=== PATIENT | male | born 1960 | race Caucasian/White ===

== ENCOUNTER → 2018-01-27 | Outpatient (CLI) | payer BC ==
[2018-01-27 10:46] LABS: ABSOLUTE BASOPHILS # (AUTO) 0.1 10^3/uL (0.0-0.2); ABSOLUTE EOSINOPHILS # (AUTO) 0.3 10^3/uL (0.0-0.6); ABSOLUTE LYMPHOCYTES (AUTO) 2.8 10^3/uL (0.5-4.7); ABSOLUTE MONOCYTES (AUTO) 0.7 10^3/uL (0.1-1.4); ABSOLUTE NEUT (AUTO) 3.9 10^3/uL (1.7-8.2); BASOPHILS % (AUTO) 1.5 % (0-2); EOSINOPHILS % (AUTO) 4.3 % (0-6); HEMATOCRIT 38.6 % (37.9-51.0); HEMOGLOBIN 13.1 g/dL (13.5-17.0); LYMPHOCYTES % (AUTO) 36.1 % (13-45); MEAN CORPUSCULAR HGB CONC 34.1 g/dL (32.0-36.0); MEAN CORPUSCULAR VOLUME 94 fl (80-97); MONOCYTES % (AUTO) 8.8 % (3-13); PLATELET COUNT 278 10^3/uL (150-450); RED BLOOD COUNT 4.11 10^6/uL (4.35-5.55); RED CELL DISTRIBUTION WIDTH 12.6 % (11.5-14.0); SEGMENTED NEUTROPHILS % (AUTO) 49.3 % (42-78); TOTAL CELLS COUNTED % (AUTO) 100 %; WHITE BLOOD COUNT 7.8 10^3/uL (4.0-10.5)
[2018-01-27 11:03] LABS: ALANINE AMINOTRANSFERASE 54 U/L (21-72); ALBUMIN 4.5 g/dL (3.5-5.0); ALKALINE PHOSPHATASE 41 U/L (38-126); ANION GAP 9 (5-19); ASPARTATE AMINO TRANSFERASE 37 U/L (17-59); BILIRUBIN,DIRECT 0.4 mg/dL (0.0-0.4); BILIRUBIN,TOTAL 0.4 mg/dL (0.2-1.3); BLOOD UREA NITROGEN 15 mg/dL (7-20); CALCIUM 9.8 mg/dL (8.4-10.2); CARBON DIOXIDE 28 mmol/L (22-30); CHLORIDE 103 mmol/L (98-107); CHOLESTEROL 235.36 mg/dL (0-200); GLUCOSE 108 mg/dL (75-110); POTASSIUM 4.8 mmol/L (3.6-5.0); SODIUM 140.4 mmol/L (137-145); TOTAL PROTEIN 7.7 g/dL (6.3-8.2); TRIGLYCERIDES 242 mg/dL (<150); URIC ACID 7.1 mg/dL (3.5-8.5)
[2018-01-27 11:18] LABS: DIRECT LDL 187 mg/dL (<100)
[2018-01-27 11:29] LABS: VLDL CHOLESTEROL 48.4 mg/dL (10-31)
[2018-01-30 03:37] LABS: THYROXINE (T4) 7.1 ug/dL (4.5-12.0)
== END ==
LOC: LAB 09:49
PROVIDERS: ATTEND Physician Assistant Medical
DX: J30.2 Other seasonal allergic rhinitis (principal); E78.5 Hyperlipidemia, unspecified; E11.9 Type 2 diabetes mellitus without complications; E55.9 Vitamin D deficiency, unspecified; R53.83 Other fatigue
CPT/HCPCS: 36415; 80053; 80061; 83036; 84402; 84403; 84436; 84443; 84479; 84481; 84550; 85025

== ENCOUNTER → 2018-08-25 | Outpatient (CLI) | payer BC ==
[2018-08-25 11:08] LABS: ALANINE AMINOTRANSFERASE 42 U/L (21-72); ALBUMIN 4.7 g/dL (3.5-5.0); ALKALINE PHOSPHATASE 42 U/L (38-126); ANION GAP 9 (5-19); ASPARTATE AMINO TRANSFERASE 30 U/L (17-59); BILIRUBIN,DIRECT 0.3 mg/dL (0.0-0.4); BILIRUBIN,TOTAL 0.4 mg/dL (0.2-1.3); BLOOD UREA NITROGEN 13 mg/dL (7-20); CALCIUM 9.7 mg/dL (8.4-10.2); CARBON DIOXIDE 33 mmol/L (22-30); CHLORIDE 100 mmol/L (98-107); CHOLESTEROL 235.63 mg/dL (0-200); GLUCOSE 126 mg/dL (75-110); POTASSIUM 5.3 mmol/L (3.6-5.0); SODIUM 141.5 mmol/L (137-145); TOTAL PROTEIN 8.4 g/dL (6.3-8.2); TRIGLYCERIDES 341 mg/dL (<150)
[2018-08-25 11:19] LABS: DIRECT LDL 163 mg/dL (<100)
[2018-08-25 11:23] LABS: FREE T4 (FREE THYROXINE) 0.93 ng/dL (0.78-2.19); VLDL CHOLESTEROL 68.2 mg/dL (10-31)
[2018-08-25 11:37] LABS: THYROID STIMULATING HORMONE 4.26 uIU/mL (0.47-4.68)
[2018-08-25 12:19] LABS: T3 UPTAKE 30.5 %; THYROXINE T4 8.19 ug/dL (5.53-11.0)
[2018-08-27 04:36] LABS: CREATININE URINE 77.9 mg/dL (Not Estab.); MICROALBUMIN URINE 25.3 ug/mL (Not Estab.)
== END ==
LOC: LAB 10:17
PROVIDERS: ATTEND Nurse Practitioner Adult Health
DX: E11.9 Type 2 diabetes mellitus without complications (principal); I10 Essential (primary) hypertension; R53.83 Other fatigue; E03.9 Hypothyroidism, unspecified; E78.5 Hyperlipidemia, unspecified
CPT/HCPCS: 36415; 80053; 80061; 82043; 82570; 83036; 84436; 84439; 84443; 84479

== ENCOUNTER → 2019-05-31 | Outpatient (CLI) | payer BC ==
--- NOTE | 2019-05-31 13:07 | RADIOLOGY REPORT (SQ) ---
EXAM DESCRIPTION: T SPINE AP/LAT COMPLETED DATE/TIME: 05/31/2019 10:14 am REASON FOR STUDY: M54.6 PAIN IN THORACIC SPINE, M54.5 LOW BACK PAIN M54.6 PAIN IN THORACIC SPINE M5 4.5 LOW BACK PAIN COMPARISON: Two-view chest film 11/27/2009 NUMBER OF VIEWS: Two views. TECHNIQUE: AP and lateral radiographic images acquired of the thoracic spine. LIMITATIONS: None. FINDINGS: MINERALIZATION: Normal. ALIGNMENT: Normal. No scoliosis. VERTEBRAE: No fracture or bone lesion. Maintained height, normal segmentation. DISCS: Disc space loss of height at T5-6 and T6-7 with vertebral body endplate sclerosis from degener ative disc change. HARDWARE: Lower cervical fusion hardware, clips and stent along the left carotid MEDIASTINUM AND SOFT TISSUES: Normal heart size and aortic contour. No soft tissue abnormality. VISUALIZED LUNG SCOTT: Clear. OTHER: No other significant finding. IMPRESSION: Degenerative disc space loss of height at T5-6 and T6-7 No acute fracture TECHNICAL DOCUMENTATION: JOB ID: [id number] [employer]- All Rights Reserved Reading location - IP/workstation name: [email or web address]
--- NOTE | 2019-05-31 13:08 | RADIOLOGY REPORT (SQ) ---
EXAM DESCRIPTION: L SPINE WHOLE COMPLETED DATE/TIME: 05/31/2019 10:14 am REASON FOR STUDY: M54.6 PAIN IN THORACIC SPINE, M54.5 LOW BACK PAIN M54.6 PAIN IN THORACIC SPINE M5 4.5 LOW BACK PAIN COMPARISON: Thoracic spine two views same date NUMBER OF VIEWS: Five views including obliques. TECHNIQUE: AP, lateral, oblique, and sacral radiographic images acquired of the lumbar spine. LIMITATIONS: None. FINDINGS: MINERALIZATION: Normal. SEGMENTATION: Normal. No transitional anatomy. ALIGNMENT: Normal. VERTEBRAE: Maintained height. No fracture or worrisome bone lesion. DISCS: Mild disc space loss of height at L4-5 POSTERIOR ELEMENTS: Pedicles and facets are intact. No pars defect or posterior arch defects. Mild bilateral facet arthropathy at L4-5 and L5-S1 HARDWARE: None in the spine. PARASPINAL SOFT TISSUES: Normal. PELVIS: Intact as visualized. No fractures or worrisome bone lesions. SI joints intact. OTHER: No other significant finding. IMPRESSION: NORMAL 5 VIEW LUMBAR SPINE. TECHNICAL DOCUMENTATION: JOB ID: [id number] [employer]- All Rights Reserved Reading location - IP/workstation name: [email or web address]
== END ==
LOC: RAD 09:35
PROVIDERS: ATTEND Pain Medicine Pain Medicine
DX: M54.5 Low back pain (principal); M51.34 Other intervertebral disc degeneration, thoracic region
CPT/HCPCS: 72070; 72110

== ENCOUNTER → 2019-07-25 | Outpatient (CLI) | payer BC ==
--- NOTE | 2019-07-25 10:22 | RADIOLOGY REPORT (SQ) ---
EXAM DESCRIPTION: MRI CERVICAL SPINE WITHOUT COMPLETED DATE/TIME: 07/25/2019 9:08 am REASON FOR STUDY: CERVICALGIA (M54.2) M54.2 CERVICALGIA COMPARISON: None. TECHNIQUE: Sagittal and Axial imaging includes T1, T2, STIR and gradient echo sequences. LIMITATIONS: None. FINDINGS: ALIGNMENT: Normal. VERTEBRAE: Intact. BONE MARROW: Normal. No marrow replacement or reactive changes. DISCS: Diffuse decreased T2 weighted intervertebral disc signal HARDWARE: Fusion from C5 through C7 CORD AND BASE OF BRAIN: Normal in size and signal intensity. SOFT TISSUES: No soft tissue masses. C1-C2: No significant spinal stenosis. C2-C3: No significant spinal stenosis or exit foraminal stenosis. C3-C4: Minimal posterior disc bulging and bony spurring is present, causing very mild left foraminal narrowing. No right foraminal stenosis or central canal narrowing. C4-C5: Minimal posterior disc bulge and bony spurring is present without central canal narrowing. Mo derate right, mild left foraminal narrowing from facet and uncovertebral hypertrophy C5-C6: Post fusion. Minimal posterior disc bulge and bony spurring is present without central canal narrowing. Moderate bilateral foraminal narrowing from facet and uncovertebral hypertrophy C6-C7: Post fusion. Mild diffuse posterior disc bulge with tiny central protrusion partially effaces the ventral thecal sac and abuts the ventral cord with minimal ventral cord flattening but no abnorm al intrinsic cord signal. Mild bilateral foraminal narrowing is present. C7-T1: No central or right foraminal narrowing. Moderate left foraminal narrowing from asymmetric le ft-sided facet and uncovertebral hypertrophy. OTHER: No other significant finding. IMPRESSION: Mild diffuse degenerative changes as above. Post fusion at C5-6 and C6-7 TECHNICAL DOCUMENTATION: JOB ID: [id number]- All Rights Reserved Reading location - IP/workstation name: [email or web address]
== END ==
LOC: RAD 07:26
PROVIDERS: ATTEND Nurse Practitioner Family
DX: M54.2 Cervicalgia (principal)
CPT/HCPCS: 72141

== ENCOUNTER 2020-07-21 05:26 | Observation (INO) | payer BC ==
[2020-07-21] MEDS ORDERED: ASPIRIN 81 MG TABLET, CHEWABLE PO ONE (05:56)
[2020-07-21] MEDS ORDERED: PENICILLIN V POTASSIUM 500 MG TABLET PO ONE (06:36)
--- NOTE | 2020-07-21 06:39 | ER Document Report ---
ED General - General Chief Complaint: Toothache Stated Complaint: GENERAL WEAKNESS Time Seen by Provider: 07/21/20 06:14 Primary Care Provider: SARA HENDERSON PA-C [Primary Care Provider] - Follow up as needed Notes: HPI: 59-year-old male with past medical history as recorded who states this morning he states he started to feel "sweaty and lightheaded". No headache, chest pain, palpitations, vomiting, or fevers. He denies any weakness or numbness. Patient denies any difficulty breathing, tongue swelling, sore t hroat, or cough. He denies any gait instability. Patient has a history of diabetes, high blood pressure, and high cholesterol. He denies any cardiac history in the past. He does take metformin. Patient states he also had some tooth discomfort to the left lower tooth and did take a Vicodin for that today. He did not take any aspirin. Currently denies any symptoms. ROS: See HPI All other review of systems reviewed and otherwise negative Reviewed vital signs and nursing note as charted by RN. PHYSICAL EXAM: CONSTITUTIONAL: Alert and oriented and responds appropriately to questions. Well-appearing; well-nourished HEAD: Normocephalic; atraumatic EYES: PERRL; Conjunctivae clear, sclerae non-icteric ENT: No obvious facial swelling. Very poor dentition. No obvious intraoral abscesses present. No posterior pharyngeal erythema with a nonswollen midline uvula NECK: Supple without meningismus; non-tender; no cervical lymphadenopathy, no masses CARD: Regular rate and rhythm; no murmurs; symmetric distal pulses RESP: Normal chest excursion without splinting or tachypnea; breath sounds clear and equal bilaterally ABD/GI: Normal bowel sounds; non-distended; soft, non-tender; no palpable organomegaly or masses BACK: The back appears normal and is non-tender to palpation EXT: Normal ROM in all joints; non-tender to palpation; no edema SKIN: No acute lesions noted NEURO: CN 2-12 intact; 5/5 bilateral upper and lower extremity strength with sensation intact to light touch; no nystagmus PSYCH: The patient's mood and manner are appropriate. Grooming and personal hygi naomi are appropriate. TRAVEL OUTSIDE OF THE [place] IN LAST 30 DAYS: No - Related Data Allergies/Adverse Reactions: iodine Allergy (Verified 09/08/20 08:09) Home Medications: metformin, lisinopril, levothyroxine, asa, rovastatin, Past Medical History - Social History Smoking Status: Current Every Day Smoker Family History: Reviewed & Not Pertinent - Past Medical History Cardiac Medical History: Reports: Hx Hypertension Endocrine Medical History: Reports: Hx Diabetes Mellitus Type 2 Physical Exam - Vital signs Vitals: Temp Pulse Resp BP Pulse Ox 97.6 F 76 16 177/68 H 94 07/21/20 05:39 07/21/20 05:39 07/21/20 05:39 07/21/20 05:39 07/21/20 05:39 Course - Re-evaluation Re-evalutation: 07/21/20 06:38 Given the above history and physical examination, with the patient symptomatology and age, I do believe this could be simply related to the patient taking a Vicodin very early on an empty stomach. However, patient did state he became lightheaded and diaphoretic. I will obtain a cardiac panel with a repeat troponin at 3 hours. I will start the patient on penicillin. If cardiac work- up is unremarkable with no increased troponin level, and the patient continues to be without any neurologic deficits, I will most likely discharge the patient home with a course of antibiotics and strict return precautions and follow-up with the dentist. EKG shows a heart rate of 76, normal sinus rhythm, poor R wave progression, no obvious ST elevation or depression 07/21/20 07:26 Patient denies any active chest pain at this time. Initial troponin is very elevated. I will add a coagulation profile. 07/21/20 07:50 I have left a message for the catheterization lab as we have catheterization available to us here on Tuesdays. I have also spoke to the meat and poultry inspector covering consultations here at this hospital Dr. Anish Rodas. He states a different group does cardiac catheterizations. He does agree with providing a heparin bolus and drip. I am awaiting callback from the catheterization meat and poultry inspector. 07/21/20 07:59 I was able to speak to Dr. Reyna the catheterization meat and poultry inspector. He states that he would be happy to perform the catheterization and is asked me to keep the patient n.p.o. I have already discussed with the meat and poultry inspector who states he will follow the patient here in the hospital. I will admit the patient to the hospitalist service and have started heparin. - Vital Signs Vital signs: Temp Pulse Resp BP Pulse Ox 97.6 F 76 15 191/95 H 95 07/21/20 05:39 07/21/20 05:39 07/21/20 07:31 07/21/20 07:31 07/21/20 07:31 - Laboratory Result Diagrams: 07/21/20 06:36 07/21/20 06:36 Laboratory results interpreted by me: 07/21/20 07/21/20 06:36 06:36 WBC 11.0 H Sodium 136.5 L Chloride 96 L Glucose 248 H Critical Care Note - Critical Care Note Total time excluding time spent on procedures (mins): 35 Discharge - Discharge Clinical Impression: NSTEMI (non-ST elevated myocardial infarction), Lightheaded, Diaphoresis Condition: Fair Disposition: ADMITTED INPATIENT Admitting Provider: Swapnil (Hospitalist) Unit Admitted: Telemetry Referrals: SARA HENDERSON PA-C [Primary Care Provider] - Follow up as needed
[2020-07-21 06:45] LABS: ABSOLUTE BASOPHILS # (AUTO) 0.1 10^3/uL (0.0-0.2); ABSOLUTE EOSINOPHILS # (AUTO) 0.3 10^3/uL (0.0-0.6); ABSOLUTE LYMPHOCYTES (AUTO) 1.9 10^3/uL (0.5-4.7); ABSOLUTE MONOCYTES (AUTO) 0.9 10^3/uL (0.1-1.4); ABSOLUTE NEUT (AUTO) 7.9 10^3/uL (1.7-8.2); BASOPHILS % (AUTO) 0.5 % (0-2); EOSINOPHILS % (AUTO) 2.5 % (0-6); HEMATOCRIT 42.5 % (37.9-51.0); HEMOGLOBIN 15.1 g/dL (13.5-17.0); LYMPHOCYTES % (AUTO) 17.4 % (13-45); MEAN CORPUSCULAR HEMOGLOBIN 32.7 pg (27.0-33.4); MEAN CORPUSCULAR HGB CONC 35.6 g/dL (32.0-36.0); MEAN CORPUSCULAR VOLUME 92 fl (80-97); MONOCYTES % (AUTO) 7.8 % (3-13); PLATELET COUNT 224 10^3/uL (150-450); RED BLOOD COUNT 4.63 10^6/uL (4.35-5.55); RED CELL DISTRIBUTION WIDTH 12.8 % (11.5-14.0); SEGMENTED NEUTROPHILS % (AUTO) 71.8 % (42-78); TOTAL CELLS COUNTED % (AUTO) 100 %
[2020-07-21 07:03] LABS: ANION GAP 12 (5-19); BLOOD UREA NITROGEN 17 mg/dL (7-20); CALCIUM 9.5 mg/dL (8.4-10.2); CARBON DIOXIDE 29 mmol/L (22-30); CHLORIDE 96 mmol/L (98-107); GLUCOSE 248 mg/dL (75-110); POTASSIUM 4.4 mmol/L (3.6-5.0)
[2020-07-21 07:39] LABS: INTERNATIONAL RATION (INR) 0.92; PROTHROMBIN TIME 12.6 SEC (11.4-15.4)
[2020-07-21] MEDS ORDERED: HEPARIN SOD (PORCINE) 1,000 UNIT/ML 10 ML VIAL IV ONE (07:48)
[2020-07-21] MEDS ORDERED: HEPARIN SODIUM,PORCINE/D5W 25,000 UNIT/250 ML RTUINJ IV PRN ×2 (07:48→09:57)
[2020-07-21 08:34] LABS: APPEARANCE,URINE CLEAR; BILIRUBIN,URINE NEGATIVE (NEGATIVE); COLOR,URINE YELLOW; GLUCOSE, URINE 50 mg/dL (NEGATIVE); KETONES,URINE NEGATIVE (NEGATIVE); LEUKOCYTE ESTERASE,URINE NEGATIVE (NEGATIVE); NITRITE,URINE NEGATIVE (NEGATIVE); PROTEIN,URINE 100 mg/dL (NEGATIVE); URINE SPECIFIC GRAVITY 1.018; UROBILINOGEN,URINE NEGATIVE mg/dL (<2.0)
[2020-07-21] MEDS ORDERED: MORPHINE SULFATE 10 MG/ML INJ IV ONE (08:38)
[2020-07-21] MEDS ORDERED: METOPROLOL TARTRATE PF/INJ 5 MG/5 ML SDV IV ONE (08:39)
--- NOTE | 2020-07-21 08:49 | EKG REPORT ---
SEVERITY:- ABNORMAL ECG - SINUS RHYTHM PROBABLE LEFT ATRIAL ABNORMALITY CONSIDER RIGHT VENTRICULAR HYPERTROPHY BORDERLINE PROLONGED QT INTERVAL : Confirmed by: Anish Rodas MD 21-Jul-2020 08:47:57
[2020-07-21] MEDS ORDERED: METHYLPREDNISOLONE INJ 125 MG/2 ML SDV IV ONE (09:21)
[2020-07-21] MEDS ORDERED: FAMOTIDINE INJ/PF 20 MG/2 ML SDV IV ONE (09:22)
[2020-07-21] MEDS ORDERED: DIPHENHYDRAMINE HCL 50 MG/ML VIAL IV ONE (09:22)
[2020-07-21] MEDS ORDERED: LEVALBUTEROL HCL NEB 1.25 MG/3 ML AMPUL NEB PRN (09:49)
[2020-07-21] MEDS ORDERED: LEVALBUTEROL HCL NEB 1.25 MG/3 ML AMPUL NEB ONE (09:49)
[2020-07-21] MEDS ORDERED: DEXTROSE 50%-WATER 25 GM/50 ML DISP.SYRIN IV PRN ×2 (09:50)
[2020-07-21] MEDS ORDERED: MAG HYDROX/AL HYDROX/SIMETH SUSP 30 ML UDCUP PO PRN (09:50)
[2020-07-21] MEDS ORDERED: DEXTROSE 40% GEL 15 GM TUBE PO PRN ×2 (09:50)
[2020-07-21] MEDS ORDERED: ONDANSETRON HCL INJ/PF 4 MG/2 ML SDV IV PRN (09:50)
[2020-07-21] MEDS ORDERED: ACETAMINOPHEN 325 MG TABLET PO PRN (09:50)
[2020-07-21] MEDS ORDERED: GLUCAGON,HUMAN RECOMB 1 MG INJ SUBCUT PRN (09:50)
[2020-07-21] MEDS ORDERED: FAMOTIDINE INJ/PF 20 MG/2 ML SDV IV SCH (10:00)
[2020-07-21] MEDS ORDERED: ASPIRIN 81 MG TABLET, ENT COATED PO SCH (10:00)
[2020-07-21] MEDS ORDERED: MIDAZOLAM 2 MG/2 ML INJ ONE (10:10)
[2020-07-21] MEDS ORDERED: FENTANYL CITRATE INJ/PF 100 MCG/2 ML AMPUL ONE (10:11)
[2020-07-21] MEDS ORDERED: LIDOCAINE 1% INJ-PF (10 MG/ML) 30 ML SDV ONE (10:11)
[2020-07-21] MEDS ORDERED: HEPARIN SOD (PORCINE) 1,000 UNIT/ML 10 ML VIAL ONE (10:12)
[2020-07-21] MEDS ORDERED: RADIAL COCKTAIL SYRINGE 10 ML IV PRN ×4 (10:30)
--- NOTE | 2020-07-21 10:33 | PDOC H&P ---
History of Present Illness Admission Date/PCP: 07/21/20 09:25 SARA HENDERSON PA-C Patient complains of: atypical chest pain History of Present Illness: SANTA MTZ is a 59 year old male with a past medical history significant for HTN, HLD, hypothyroidism, DM2, and tobacco dependency (40 year pack hx) who presented to the emergency department today with a complaint of atypical chest discomfort; diaphoresis and lightheadedness when preparing for work this mo rning. Patient denies associated symptoms of chest pain, palpitations, dyspnea, nausea, headache. He states he has never had symptoms like this before but had a generalized and sense of unwell and "something being wrong" which prompted him to seek evaluation in the emergency department. Evaluation emergency department revealed uncontrolled hypertension but otherwise stable vital signs, mild leukocytosis, appropriate PT/INR, unremarkable chemistry other than a glucose of 248, and an elevated troponin of 0.306. Urinalysis is notable for proteinuria. ED provider has discussed the patient's case with Dr. Reyna and Dr. Rodas; patient is planned for cardiac cath at 10:30 this morning. He is provided Benadryl, Pepcid, Solu-Medrol due to contrast dye allergy (hives and pruritus; no difficulty with dyspnea or edema) and placed on a heparin drip. He is referred to the hospitalist service for further evaluation and management of the above-stated complaints findings. Past Medical History Cardiac Medical History: Reports: Hyperlipidema, Hypertension Denies: Coronary Artery Disease, Myocardial Infarction Pulmonary Medical History: Reports: None EENT Medical History: Reports: None Neurological Medical History: Reports: None Endocrine Medical History: Reports: Diabetes Mellitus Type 2, Obesity Renal/ Medical History: Reports: None Malignancy Medical History: Reports: None GI Medical History: Reports: None Musculoskeltal Medical History: Reports: None Skin Medical History: Reports: None Psychiatric Medical History: Reports: Tobacco Dependency Traumatic Medical History: Reports: None Hematology: Reports: None Infectious Medical History: Reports: None Past Surgical History Past Surgical History: Reports: Carotid Endarterectomy - left side, Orthopedic Surgery - c-spine, Other - remote cleft lip repair Social History Information Source: Patient Lives with: Family Smoking Status: Current Every Day Smoker Cigarettes Packs Per Day: 0.3 Frequency of Alcohol Use: Occasional Hx Recreational Drug Use: No Drugs: None Hx Prescription Drug Abuse: No - Advance Directive Resuscitation Status: Full Code Family History Family History: Reviewed & Not Pertinent Parental Family History Reviewed: Yes Children Family History Reviewed: Yes Sibling(s) Family History Reviewed.: Yes Medication/Allergy Allergies/Adverse Reactions: iodine Allergy (Verified 07/21/20 08:09) Review of Systems Constitutional: PRESENT: as per HPI. ABSENT: chills, fever(s), headache(s), weight gain, weight loss Eyes: ABSENT: visual disturbances Ears: ABSENT: hearing changes Cardiovascular: PRESENT: as per HPI. ABSENT: chest pain, dyspnea on exertion, edema, orthropnea, palpitations Respiratory: ABSENT: cough, hemoptysis Gastrointestinal: ABSENT: abdominal pain, constipation, diarrhea, hematemesis, hematochezia, nausea, vomiting Genitourinary: ABSENT: dysuria, hematuria Musculoskeletal: ABSENT: joint swelling Integumentary: ABSENT: rash, wounds Neurological: ABSENT: abnormal gait, abnormal speech, confusion, dizziness, focal weakness, syncope Psychiatric: ABSENT: anxiety, depression, homidical ideation, suicidal ideation Endocrine: ABSENT: cold intolerance, heat intolerance, polydipsia, polyuria Hematologic/Lymphatic: ABSENT: easy bleeding, easy bruising Physical Exam Vital Signs: Temp Pulse Resp BP Pulse Ox 97.6 F 76 12 204/95 H 97 07/21/20 05:39 07/21/20 05:39 07/21/20 09:31 07/21/20 09:31 07/21/20 09:31 Intake & Output 07/20/20 07/21/20 07/22/20 06:59 06:59 06:59 Weight 94.347 kg General appearance: PRESENT: no acute distress, cooperative, obese, well- developed, well-nourished Head exam: PRESENT: atraumatic, normocephalic Eye exam: PRESENT: conjunctiva pink, EOMI, PERRLA. ABSENT: scleral icterus Mouth exam: PRESENT: moist, tongue midline Respiratory exam: PRESENT: prolonged expiratory phas, symmetrical, unlabored, wheezes - throughout. ABSENT: rales, rhonchi Cardiovascular exam: PRESENT: RRR, +S1, +S2. ABSENT: diastolic murmur, rubs, systolic murmur Pulses: PRESENT: normal dorsalis pedis pul Vascular exam: PRESENT: normal capillary refill Rectal exam: PRESENT: deferred Extremities exam: PRESENT: full ROM. ABSENT: calf tenderness, clubbing, pedal edema Neurological exam: PRESENT: alert, awake, oriented to person, oriented to place, oriented to time, oriented to situation, CN II-XII grossly intact. ABSENT: motor sensory deficit Psychiatric exam: PRESENT: appropriate affect, normal mood. ABSENT: homicidal ideation, suicidal ideation Skin exam: PRESENT: dry, intact, warm. ABSENT: cyanosis, rash Results Laboratory Results: 07/21/20 06:36 07/21/20 06:36 07/21/20 07/21/20 07/21/20 06:36 06:36 08:00 WBC 11.0 H RBC 4.63 Hgb 15.1 Hct 42.5 MCV 92 MCH 32.7 MCHC 35.6 RDW 12.8 Plt Count 224 Seg Neutrophils % 71.8 Sodium 136.5 L Potassium 4.4 Chloride 96 L Carbon Dioxide 29 Anion Gap 12 BUN 17 Creatinine 0.73 Est GFR ( Amer) > 60 Glucose 248 H Calcium 9.5 Urine Color YELLOW Urine Appearance CLEAR Urine pH 6.0 Ur Specific [place] 1.018 Urine Protein 100 H Urine Glucose (UA) 50 H Urine Ketones NEGATIVE Urine Blood NEGATIVE Urine Nitrite NEGATIVE Ur Leukocyte Esterase NEGATIVE Urine WBC (Auto) 2 Urine RBC (Auto) 1 07/21/20 06:36 Troponin I 0.306 Assessment and Plan - Diagnosis (1) Atypical chest pain Is this a current diagnosis for this admission?: Yes Plan: Patient presented to the emergency department with atypical chest pain; diaphoresis, lightheadedness, and general sense of unwellness. EKG showed sinus rhythm with possible right sided ventricular hypertrophy but without ST elevation or depression. Initial troponin elevated to 0.306. Cardiology and interventional list are consulted; planned cardiac catheterization early this morning. Patient is admitted to [facility] on continuous cardiac telemetry. We will continue heparin drip. Continue daily aspirin therapy. High-dose statin. We will defer further medical management to the cardiology team as ideal medication regiment will be determined by cardiac cath results. (2) Elevated troponin Is this a current diagnosis for this admission?: Yes Plan: As above (3) HTN (hypertension) Qualifiers: Hypertension type: essential hypertension Qualified Code(s): I10 - Essential (primary) hypertension Is this a current diagnosis for this admission?: Yes Plan: Per patient; utilizes lisinopril at home. He is hypertensive today. Received IV Lopressor per ED provider. N.p.o. currently; advance to cardiac diet post-cath. We will adjust antihypertensives based upon cardiac cath results. (4) HLD (hyperlipidemia) Is this a current diagnosis for this admission?: Yes Plan: N.p.o. currently; advance to cardiac diet post-cath. High-dose statin Registered dietitian is consulted. (5) Hypothyroid Is this a current diagnosis for this admission?: Yes Plan: Thyroid panel with a.m. labs. Home dose levothyroxine for now. - Time Time Spent with patient: 25-34 minutes Smoking Cessation Education: 3 to 10 minutes Medications reviewed and adjusted accordingly: Yes Anticipated Discharge Disposition: Home, Self Care Anticipated Discharge Timeframe: within 48 hours
[2020-07-21] MEDS ORDERED: HEPARIN SOD (PORCINE) 1,000 UNIT/ML 10 ML VIAL IV PRN ×2 (10:50→12:58)
[2020-07-21] MEDS ORDERED: DIPHENHYDRAMINE HCL 50 MG/ML VIAL ONE (10:52)
[2020-07-21] MEDS ORDERED: HYDRALAZINE HCL INJ/PF 20 MG/1 ML SDV IV PRN (11:51)
--- NOTE | 2020-07-21 11:58 | PDOC TRANSFER SUMMARY ---
General Admission Date/PCP: 07/21/20 09:25 SARA HENDERSON PA-C Admission Date: 07/21/20 Transfer Date: 07/21/20 Accepting Facility: [facility] Accepting Physician: Dr. Ly Resuscitation Status: Full Code - Transfer Diagnosis (1) Atypical chest pain Is this a current diagnosis for this admission?: Yes (2) Elevated troponin Is this a current diagnosis for this admission?: Yes (3) HTN (hypertension) Is this a current diagnosis for this admission?: Yes (4) HLD (hyperlipidemia) Is this a current diagnosis for this admission?: Yes (5) Hypothyroid Is this a current diagnosis for this admission?: Yes (6) Heart failure with reduced ejection fraction Is this a current diagnosis for this admission?: Yes (7) Multi-vessel coronary artery stenosis Is this a current diagnosis for this admission?: Yes (8) Ischemic cardiomyopathy Is this a current diagnosis for this admission?: Yes - Transfer Medications Transfer Medications: Current Medications Acetaminophen (Tylenol 325 Mg Tablet) 650 mg PO Q4HP PRN PRN Reason: FOR HEADACHE Stop: 08/20/20 09:49 Al Hydrox/Mg Hydrox/Simethicone (Maalox Plus Susp 30 Udcup) 30 ml PO Q4HP PRN PRN Reason: HEARTBURN Stop: 08/20/20 09:49 Aspirin (Ecotrin 81 Mg Ec Tablet) 81 mg PO DAILY ROSELINE Stop: 08/20/20 09:59 Atorvastatin Calcium (Lipitor 80 Mg Tablet) 80 mg PO QHS ROSELINE Stop: 08/20/20 21:59 Dextrose (Dextrose Inj 50% Syringe (25 Gm/50 Ml)) 12.5 gm IV PRN PRN; Protocol PRN Reason: FOR BG 50-69 IN ALERT PATIENT Stop: 08/20/20 09:49 Dextrose (Dextrose Inj 50% Syringe (25 Gm/50 Ml)) 25 gm IV PRN PRN; Protocol PRN Reason: See Label Comments Stop: 08/20/20 09:49 Famotidine (Pepcid Inj/Pf 20 Mg/2 Ml Sdv) 20 mg IV Q12 ROSELINE Stop: 08/20/20 09:59 Glucagon (Glucagen Inj 1 Mg Vial) 1 mg SUBCUT PRN PRN; Protocol PRN Reason: Evaluate for BG < 70 Stop: 08/20/20 09:49 Glucose (Glutose 40% Gel 15 Gm Tube) 15 gm PO PRN PRN; Protocol PRN Reason: For BG 50-69 in Alert Patient Stop: 08/20/20 09:49 Glucose (Glutose 40% Gel 15 Gm Tube) 30 gm PO PRN PRN; Protocol PRN Reason: FOR BG < 50 IN ALERT PATIENT Stop: 08/20/20 09:49 Heparin Sodium (Porcine) (Heparin Inj 1,000 Unit/Ml 10 Ml Vial) 0 - 12,000 unit IV .BOLUS PER PROTOCOL PRN; Protocol PRN Reason: RESPOND TO aPTT VALUE Stop: 08/20/20 10:49 Heparin Sodium (Porcine) (Heparin Inj 1,000 Unit/Ml 10 Ml Vial) 0 - 12,000 unit IV .BOLUS PER PROTOCOL PRN; Protocol PRN Reason: RESPOND TO aPTT VALUE Stop: 08/20/20 12:57 Heparin Sodium/Dextrose (Heparin Rtu 25,000 Unit/250 Ml D5w Premix) 25,000 unit in 250 mls @ 0 mls/hr IV CONTINUOUS PRN; Protocol PRN Reason: THIS MED IS NOT "PRN" Stop: 08/20/20 07:47 Last Admin: 07/21/20 08:24 Dose: 10 mls/hr, 10 mls/hr Documented by: Verapamil HCl 5 mg/ Lidocaine HCl 2 ml/ Sodium Chloride 6 ml / Syringe 10 mls @ 0 mls/hr IV .CATHLAB 07/21/20 PRN PRN Reason: THIS MED IS NOT "PRN" Stop: 07/21/20 23:59 Heparin Sodium/Dextrose (Heparin Rtu 25,000 Unit/250 Ml D5w Premix) 25,000 unit in 250 mls @ 0 mls/hr IV CONTINUOUS PRN; Protocol PRN Reason: THIS MED IS NOT "PRN" Stop: 08/20/20 09:56 Levalbuterol HCl (Xopenex Neb 1.25 Mg/3 Ml Ampul) 1.25 mg NEB RTQ6HP PRN PRN Reason: SHORTNESS OF BREATH Stop: 08/20/20 09:48 Ondansetron HCl (Zofran Inj/Pf 4 Mg/2 Ml Sdv) 4 mg IV Q6HP PRN PRN Reason: FOR NAUSEA/VOMITING Stop: 08/20/20 09:49 Sodium Chloride (Saline Flush 2.5 Ml Monoject Prefil Syrin) 2.5 ml IV Q8 ROSELINE Stop: 08/20/20 13:59 - Allergies Allergies/Adverse Reactions: iodine Allergy (Verified 07/21/20 08:09) Hospital Course Hospital Course: Per H&P: SANTA MTZ is a 59 year old male with a past medical history significant for HTN, HLD, hypothyroidism, DM2, and tobacco dependency (40 year pack hx) who presented to the emergency department today with a complaint of atypical chest discomfort; diaphoresis and lightheadedness when preparing for work this morning. Patient denies associated symptoms of chest pain, palpitations, dyspnea, nausea, headache. He states he has never had symptoms like this before but had a generalized and sense of unwell and "something being wrong" which prompted him to seek evaluation in the emergency department. Evaluation emergency department revealed uncontrolled hypertension but otherwise stable vital signs, mild leukocytosis, appropriate PT/INR, unremarkable chemistry other than a glucose of 248, and an elevated troponin of 0.306. Urinalysis is notable for proteinuria. ED provider has discussed the patient's case with Dr. Reyan and Dr. Rodas; patient is planned for cardiac cath at 10:30 this morning. He is provided Benadryl, Pepcid, Solu-Medrol due to contrast dye allergy (hives and pruritus; no difficulty with dyspnea or edema) and placed on a heparin drip. He is referred to the hospitalist service for further evaluation and management of the above-stated complaints findings. Course: The patient proceeded from the emergency department directly to the [facility] with Dr. Reyna. Found to have multivessel disease with approximately 90% occlusion to the LAD, 80% of the circumflex, and an ulcerated plaque to the right, with ischemic cardiomyopathy and an estimated LVEF of 40%. Dr. Reyna states that the patient would be better served by surgical intervention and has arranged for the patient to be transferred to [facility] under the care of Dr. Ly for definitive treatment. While awaiting transport, he will be continued on the heparin drip, daily aspirin and statin therapy, and hydralazine as needed blood pressure control. He will be maintained in an n.p.o. status. Currently stable for transfer and awaiting bed assignment. Physical Exam Vital Signs: Temp Pulse Resp BP Pulse Ox 97.6 F 76 18 200/107 H 96 07/21/20 05:39 07/21/20 05:39 07/21/20 10:01 07/21/20 10:01 07/21/20 10:01 Intake & Output 07/20/20 07/21/20 07/22/20 06:59 06:59 06:59 Weight 94.347 kg General appearance: PRESENT: no acute distress, cooperative, obese, well- developed, well-nourished Head exam: PRESENT: atraumatic, normocephalic Eye exam: PRESENT: conjunctiva pink, EOMI, PERRLA. ABSENT: scleral icterus Mouth exam: PRESENT: moist, tongue midline Respiratory exam: PRESENT: clear to auscultation annetta, symmetrical, unlabored, wheezes. ABSENT: rales, rhonchi Cardiovascular exam: PRESENT: RRR. ABSENT: diastolic murmur, rubs, systolic murmur Pulses: PRESENT: normal dorsalis pedis pul Vascular exam: PRESENT: normal capillary refill Extremities exam: PRESENT: full ROM. ABSENT: calf tenderness, clubbing, pedal edema Neurological exam: PRESENT: alert, awake, oriented to person, oriented to place, oriented to time, oriented to situation, CN II-XII grossly intact. ABSENT: motor sensory deficit Psychiatric exam: PRESENT: appropriate affect, normal mood. ABSENT: homicidal ideation, suicidal ideation Skin exam: PRESENT: dry, intact, warm. ABSENT: cyanosis, rash Results Laboratory Results: 07/21/20 06:36 07/21/20 06:36 07/21/20 07/21/20 07/21/20 06:36 06:36 08:00 WBC 11.0 H RBC 4.63 Hgb 15.1 Hct 42.5 MCV 92 MCH 32.7 MCHC 35.6 RDW 12.8 Plt Count 224 Seg Neutrophils % 71.8 Sodium 136.5 L Potassium 4.4 Chloride 96 L Carbon Dioxide 29 Anion Gap 12 BUN 17 Creatinine 0.73 Est GFR ( Amer) > 60 Glucose 248 H Calcium 9.5 Urine Color YELLOW Urine Appearance CLEAR Urine pH 6.0 Ur Specific [place] 1.018 Urine Protein 100 H Urine Glucose (UA) 50 H Urine Ketones NEGATIVE Urine Blood NEGATIVE Urine Nitrite NEGATIVE Ur Leukocyte Esterase NEGATIVE Urine WBC (Auto) 2 Urine RBC (Auto) 1 07/21/20 07/21/20 06:36 09:20 Troponin I 0.306 0.268 Plan Discharge Plan: Transfer to [facility] under the care of Dr. Ly. Time Spent: Less than 30 Minutes
--- NOTE | 2020-07-21 12:04 | Operative Report ---
Operative Report DATE OF SURGERY: 07/21/20 PREOPERATIVE DIAGNOSIS: Acute coronary syndrome POSTOPERATIVE DIAGNOSIS: Multivessel coronary disease OPERATION: Left heart catheterization coronary angiography left ventriculography radial approach SURGEON: OCTAVIO ELKINS ANESTHESIA: Moderate Sedation TISSUE REMOVED OR ALTERED: None COMPLICATIONS: None PROCEDURE: After informed consent was obtained the patient was brought to the cardiac catheterization lab and the right wrist was prepared in usual sterile and draped manner. Hemodynamic access was gained using micropuncture technique and the patient was anticoagulated with heparin. An intra-arterial cocktail of verapamil and lidocaine was administered. Selective coronary angiography was performed with a Redford catheter. This was exchanged with pigtail catheter and left ventriculography was performed in standard ORTEGA projection. The patient left the Cardiac Catheterization Lab in stable condition, with intact distal pulses and no chest pain or other complications from the procedure. Conscious sedation was initiated, monitored, and maintained during the procedure with the start time of [1035] and a completion time of [1154] for a total procedure time of [79]. A total of [2] milligrams of Versed and [75 micrograms]of fentanyl were used for conscious sedation. HEMODYNAMIC DATA: [Aortic pressure at the beginning of the case is 166/75 post ventriculography LV pressure is 149/18 aortic pressure on pullback is 148/63 there is no gradient across the aortic valve] CORONARY ANATOMY: [] ANGIOGRAPHY: [] VENTRICULOGRAPHY: Ventriculography is performed in the ORTEGA projection and demonstrates [mildly depressed left ventricular function with global hypokinesis visually ejection fraction is in the 40 to 45% range] . 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 the ongoing LAD has luminal irregularities and reaches the apex of the left ventricle] CIRCUMFLEX CORONARY: [The circumflex gives rise to a first obtuse marginal ramus intermedius branch there is a 70 to 80% stenosis in the proximal portion the second obtuse marginal also has a 50 to 70% stenosis the AV groove circumflex is diminutive] RIGHT CORONARY ARTERY: [The right coronary artery is a dominant vessel supplying the PDA and posterior lateral branches the mid right coronary artery has an ulcerated ruptured plaque and appears to be the culprit lesion there is an 80 to 90% stenosis in that location there is a 70% mid PDA stenosis of the right PDA] IMPRESSION: [ 1. Mildly depressed left ventricular function consistent with ischemic cardiomyopathy 2. No evidence of significant valvular heart disease 3. Multivessel coronary disease and involving the LAD ramus intermedius, second obtuse marginal, and mid right coronary artery Discussion: Recommendations are for cardiothoracic surgery consultation and bypass surgery given his multivessel disease and reduced left ventricular funct ion and diabetes mellitus]
[2020-07-21 14:23] VITALS: BP 172/87
[2020-07-21] MEDS ORDERED: ATORVASTATIN CALCIUM 80 MG TABLET PO SCH (22:00)
== END 2020-07-21 14:13 | disposition short-term general hospital (02) ==
LOC: ER 05:26 → INTOOBSV 09:25 → EH 09:25 → 3W 12:11
PROVIDERS: ADMIT Internal Medicine; ATTEND Internal Medicine
DX: R07.89 Other chest pain (principal); R79.89 Other specified abnormal findings of blood chemistry; I25.10 Atherosclerotic heart disease of native coronary artery without angina pectoris; E11.9 Type 2 diabetes mellitus without complications; E78.5 Hyperlipidemia, unspecified; E03.9 Hypothyroidism, unspecified; I11.0 Hypertensive heart disease with heart failure; I50.9 Heart failure, unspecified; I25.5 Ischemic cardiomyopathy; R61 Generalized hyperhidrosis; R42 Dizziness and giddiness; E66.9 Obesity, unspecified; L50.0 Allergic urticaria; T50.8X5A Adverse effect of diagnostic agents, initial encounter; Y92.239 Unspecified place in hospital as the place of occurrence of the external cause; R80.9 Proteinuria, unspecified; K08.89 Other specified disorders of teeth and supporting structures; F17.210 Nicotine dependence, cigarettes, uncomplicated; Z79.84 Long term (current) use of oral hypoglycemic drugs; Z79.899 Other long term (current) drug therapy; Z79.82 Long term (current) use of aspirin; Z79.890 Hormone replacement therapy
CPT/HCPCS: 93005; 99285; 96375; 96365; 96366; 36415; 82962; 85025; 85610; 85730; 80048; 81001; 84484; 85347; 93458; 93010; 99406; C1769; J2250; J1644 ×3; J1200; J3010; J3490 ×2; J2930; J2270; S0028; J7614